=== PATIENT | female | born 1990 | race African-American/Black ===

== ENCOUNTER 2017-05-22 16:33 | Emergency (ER) | payer OTHER ==
[~2017-05-22] VITALS: Ht 149.9 cm; Wt 57.6 kg
== END 2017-05-22 19:51 | disposition hospice, home (50) ==
LOC: CED 16:33
DX: Z04.41 Encounter for examination and observation following alleged adult rape (principal); F17.200 Nicotine dependence, unspecified, uncomplicated
CPT/HCPCS: 99284